=== PATIENT | female | born 1955 | race Caucasian/White ===

== ENCOUNTER → 2017-11-13 | Outpatient (CLI) | payer OTHER ==
--- NOTE | 2017-11-15 07:24 | MM ---
Reason for exam: screening (asymptomatic). Last mammogram was performed 1 year and 1 month ago. History: Patient is postmenopausal. Family history of premenopausal breast cancer in sister and breast cancer in paternal aunt. Physical Findings: A clinical breast exam by your physician is recommended on an annual basis and results should be correlated with mammographic findings. MG 3D Screening Mammo W/Cad Bilateral CC and MLO view(s) were taken. Prior study comparison: October 16, 2016, bilateral MG screening mammo w CAD. October 14, 2015, bilateral MG 3d screening mammo w/cad. The breast tissue is heterogeneously dense. This may lower the sensitivity of mammography. There is no discrete abnormality. No significant changes when compared with prior studies. ASSESSMENT: Negative, BI-RAD 1 RECOMMENDATION: Routine screening mammogram of both breasts in 1 year.
== END | disposition home or self-care (01) ==
LOC: RADMAMWWP 08:08
PROVIDERS: ATTEND Obstetrics & Gynecology
DX: Z12.31 Encounter for screening mammogram for malignant neoplasm of breast (principal)
CPT/HCPCS: 77063; 77067

== ENCOUNTER → 2018-09-04 | Outpatient (CLI) | payer OTHER ==
--- NOTE | 2018-09-04 13:26 | XR ---
EXAMINATION TYPE: XR wrist complete RT DATE OF EXAM: 09/04/2018 CLINICAL HISTORY: Radial pain for 2 weeks. TECHNIQUE: Frontal, lateral, scaphoid, and oblique images of the right wrist are obtained. COMPARISON: None FINDINGS: There is no acute fracture/dislocation evident in the right wrist. There is mild narrowing and spurring at base of first metacarpal otherwise carpal joint spaces are fairly well-maintained. The overlying soft tissue appears unremarkable. IMPRESSION: As above.
== END ==
LOC: RADXRMAIN 12:32
PROVIDERS: ATTEND Family Medicine
DX: M25.531 Pain in right wrist (principal)

== ENCOUNTER → 2019-03-10 | Outpatient (CLI) | payer OTHER ==
--- NOTE | 2019-03-11 11:10 | MM ---
Reason for exam: screening (asymptomatic). Last mammogram was performed 1 year and 4 months ago. History: Patient is postmenopausal. Family history of premenopausal breast cancer in sister and breast cancer in paternal aunt. Physical Findings: A clinical breast exam by your physician is recommended on an annual basis and results should be correlated with mammographic findings. MG 3D Screening Mammo W/Cad Bilateral CC and MLO view(s) were taken. XCCL view(s) were taken of the right breast. Prior study comparison: November 13, 2017, bilateral MG 3d screening mammo w/cad. October 16, 2016, bilateral MG screening mammo w CAD. The breast tissue is heterogeneously dense. This may lower the sensitivity of mammography. No suspicious abnormality on the left. Right upper outer quadrant posterior depth focal asymmetry best seen on 3D MLO . ASSESSMENT: Incomplete: need additional imaging evaluation, BI-RAD 0 RECOMMENDATION: Special view mammogram of the right breast. If lesion persists on supplemental views, image directed ultrasound is recommended. [facility] will attempt to contact patient to return for supplemental views and ultrasound if indicated.
== END ==
LOC: RADMAMWWP 07:15
PROVIDERS: ATTEND Obstetrics & Gynecology
DX: Z12.31 Encounter for screening mammogram for malignant neoplasm of breast (principal)
CPT/HCPCS: 77063; 77067

== ENCOUNTER → 2019-03-17 | Outpatient (CLI) | payer OTHER ==
--- NOTE | 2019-03-17 14:57 | MM ---
Reason for exam: additional evaluation requested from abnormal screening. Last mammogram was performed less than 1 month ago. History: Patient is postmenopausal. Family history of premenopausal breast cancer in sister and breast cancer in paternal aunt. Physical Findings: Nurse did not find any significant physical abnormalities on exam. MG 3D Work Up W/Cad RT Spot compression CC, spot compression MLO, and ML view(s) were taken of the right breast. Prior study comparison: March 10, 2019, bilateral MG 3d screening mammo w/cad. November 13, 2017, bilateral MG 3d screening mammo w/cad. The breast tissue is heterogeneously dense. This may lower the sensitivity of mammography. The previously seen abnormality resolves on additional views and appears as fibroglandular tissue compatible with summation. These results were verbally communicated with the patient and result sheet given to the patient on 03/17/19. ASSESSMENT: Negative, BI-RAD 1 RECOMMENDATION: Return to routine screening mammogram schedule for both breasts.
== END | disposition home or self-care (01) ==
LOC: RADMAMWWP 13:41
PROVIDERS: ATTEND Obstetrics & Gynecology
DX: R92.8 Other abnormal and inconclusive findings on diagnostic imaging of breast (principal)
CPT/HCPCS: 77061; 77065

== ENCOUNTER → 2020-09-14 | Outpatient (CLI) | payer MEDICARE, BC ==
--- NOTE | 2020-09-14 22:52 | CT ---
CT CHEST FOR PULMONARY EMBOLISM. EXAMINATION TYPE: CT angio chest DATE OF EXAM: 09/14/2020 INDICATION: Follow up for pulmonary embolism. CT DLP: 249.4 mGycm, Automated exposure control for dose reduction was used. CONTRAST: Patient injected with 63ml mL of Isovue 370. COMPARISON: No prior CT chest at this location TECHNIQUE: CT of the chest is performed on a spiral scan at 2 mm thick sections. Study is performed with intravenous contrast timed for evaluation for pulmonary embolism. This will limit additional po rtions of the evaluation. 3-D MIP images reconstructed by the technologist are reviewed on the compu ter in the coronal and sagittal planes. FINDINGS: No persistent filling defects are evident to suggest an acute or chronic pulmonary embolism. No mediastinal or hilar adenopathy enlarged by CT criteria is evident. The ascending aorta diameter at the level of the main pulmonary artery is 4.0 cm. The main pulmonary artery diameter at the bifur cation is 3.3 cm. Small hiatal hernia may be present. There are linear opacities within the lower lung moss likely on the basis of atelectasis and/or sca rring. Limited CT section through the upper abdomen are unremarkable. IMPRESSIONS: 1. No suspicious pulmonary artery filling defects for chronic or recurrent pulmonary emboli.
== END | disposition home or self-care (01) ==
LOC: RADCTMAIN 15:19
PROVIDERS: ATTEND Family Medicine
DX: I26.09 Other pulmonary embolism with acute cor pulmonale (principal)
CPT/HCPCS: 82565; 84520; 71275; 36415; Q9967

== ENCOUNTER → 2020-11-11 | Outpatient (CLI) | payer MEDICARE, BC ==
--- NOTE | 2020-11-11 14:34 | MM ---
Reason for exam: screening (asymptomatic). Last mammogram was performed 1 year and 8 months ago. History: Patient is postmenopausal. Family history of premenopausal breast cancer in sister and breast cancer in paternal aunt. Physical Findings: A clinical breast exam by your physician is recommended on an annual basis and results should be correlated with mammographic findings. MG 3D Screening Mammo W/Cad Bilateral CC and MLO view(s) were taken. XCCL view(s) were taken of the right breast. Prior study comparison: March 10, 2019, bilateral MG 3d screening mammo w/cad. November 13, 2017, bilateral MG 3d screening mammo w/cad. The breast tissue is heterogeneously dense. This may lower the sensitivity of mammography. There are benign appearing round calcifications in the right breast. There is no discrete abnormality. ASSESSMENT: Benign, BI-RAD 2 RECOMMENDATION: Routine screening mammogram of both breasts in 1 year.
== END | disposition home or self-care (01) ==
LOC: RADMAMWWP 08:47
PROVIDERS: ATTEND Obstetrics & Gynecology
DX: Z12.31 Encounter for screening mammogram for malignant neoplasm of breast (principal)
CPT/HCPCS: 77063; 77067

== ENCOUNTER → 2021-10-18 | Outpatient (CLI) | payer MEDICARE, BC ==
--- NOTE | 2021-10-18 11:26 | US ---
EXAMINATION TYPE: US abdomen complete DATE OF EXAM: 10/18/2021 COMPARISON: NONE CLINICAL HISTORY: 66-year-old female R10.9 abd and pelvis pain. TECHNIQUE: Multiple sonographic images of the abdomen are obtained. FINDINGS: EXAM MEASUREMENTS: Liver Length: 16.8 cm Gallbladder Wall: 0.2 cm CBD: 0.2 cm Spleen: 9.6 cm Right Kidney: Partially obscured due to overlying bowel gas. Unable to assess the long axis dimensio n. Left Kidney: 10.8 x 4.6 x 5.1 cm Dedicated Owner Operator notes: severe overlying bowel gas, technically difficult limited study. Pancreas: Only portions of the pancreatic head and neck are seen. Remainder is obscured by bowel gas shadowing. Liver: wnl Gallbladder: wnl Evidence for sonographic Lopez's sign: no CBD: wnl Spleen: wnl Right Kidney: Partially obscured by overlying bowel gas, portions visualized wnl . No hydronephrosis . Left Kidney: wnl Upper IVC: wnl Abd Aorta: Mostly obscured by overlying bowel gas IMPRESSION: Limitations due to overlying bowel gas. No gallstones or biliary ductal dilatation. No hydronephrosis .
--- NOTE | 2021-10-18 11:37 | US ---
EXAMINATION TYPE: US transvaginal DATE OF EXAM: 10/18/2021 COMPARISON: NONE CLINICAL HISTORY: 66-year-old female R10.9 abd and pelvic pain. TECHNIQUE: Transvaginal (TV). The patient's bladder is not full Date of LMP: postmenopausal FINDINGS: EXAM MEASUREMENTS: Uterus: 6.3 x 2.7 x 4.3 cm Endometrial Stripe: 0.3 cm Right Ovary: 1.5 x 0.7 x 0.9 cm Left Ovary: Obscured by overlying bowel gas 1. Uterus: Anteverted and otherwise wnl 2. Endometrium: wnl 3. Right Ovary: wnl 4. Left Ovary: Obscured by overlying bowel gas 5. Bilateral Adnexa: wnl 6. Posterior cul-de-sac: wnl IMPRESSION: Unable to visualize the left ovary. Thin endometrial stripe at 3 mm. No pelvic free fluid.
== END | disposition home or self-care (01) ==
LOC: RADUSWWP 09:45
PROVIDERS: ATTEND Family Medicine
DX: R10.9 Unspecified abdominal pain (principal)
CPT/HCPCS: 76700; 76830

== ENCOUNTER → 2022-03-30 | Outpatient (CLI) | payer MEDICARE, BC ==
--- NOTE | 2022-04-02 19:50 | MM ---
Reason for Exam: Screening (asymptomatic). Last mammogram was performed 1 year(s) and 5 month(s) ago. Patient History: Menarche at age 11. First Full-Term at age 21. Postmenopausal. Paternal aunt had breast cancer, age 51. Sister had breast cancer, age 30. Risk Values: Tiff 5 year model risk: 3.2%. NCI Lifetime model risk: 10.8%. Prior Study Comparison: 03/10/2019 Bilateral Screening Mammogram, [facility]. 03/17/2019 Right Diagnostic Mammogram, [facility]. 11/11/2020 Bilateral Screening Mammogram, [facility]. Tissue Density: The breast tissue is heterogeneously dense. This may lower the sensitivity of mammography. Findings: Analyzed By CAD. No significant change from prior exams. Overall Assessment: Negative, BI-RAD 1 Management: Screening Mammogram of both breasts in 1 year. A clinical breast exam by your physician is recommended on an annual basis and results should be correlated with mammographic findings. Also, the patient should continue monthly self breast exams. Electronically signed and approved by: Geremias Restrepo M.D. Radiologist
== END | disposition home or self-care (01) ==
LOC: RADMAMWWP 06:59
PROVIDERS: ATTEND Obstetrics & Gynecology
DX: Z12.31 Encounter for screening mammogram for malignant neoplasm of breast (principal)
CPT/HCPCS: 77063; 77067

== ENCOUNTER → 2022-06-28 | Outpatient (CLI) | payer MEDICARE, BC ==
--- NOTE | 2022-06-28 12:50 | XR ---
EXAMINATION TYPE: XR ankle complete LT DATE OF EXAM: 06/28/2022 CLINICAL HISTORY: Pain and swelling after rolling injury. TECHNIQUE: Frontal, lateral and oblique images of the left ankle are obtained. COMPARISON: None. FINDINGS: There is moderate soft tissue swelling over the lateral malleolus with acute oblique chip t ype fracture through the distal lateral aspect of the lateral malleolus. Small fracture fragment nagi ures roughly 7 x 6 mm. Medial malleolus is intact. Ankle mortise symmetry is preserved. Incidental mo derate size inferior calcaneal spur. IMPRESSION: As above.
== END | disposition home or self-care (01) ==
LOC: RADXRMAIN 12:18
PROVIDERS: ATTEND Family Medicine
DX: M25.572 Pain in left ankle and joints of left foot (principal)

== ENCOUNTER → 2023-05-09 | Outpatient (CLI) | payer MEDICARE, BC ==
--- NOTE | 2023-05-10 15:40 | MM ---
Reason for Exam: Screening (asymptomatic). Last mammogram was performed 1 year(s) and 1 month(s) ago. Patient History: Menarche at age 11. First Full-Term at age 21. Postmenopausal. Paternal aunt had breast cancer, age 51. Sister had breast cancer, age 30. Risk Values: Tiff 5 year model risk: 3.3%. NCI Lifetime model risk: 10.4%. Prior Study Comparison: 03/17/2019 Right Diagnostic Mammogram, [facility]. 11/11/2020 Bilateral Screening Mammogram, [facility]. 03/30/2022 Bilateral MG 3D screening mammo w/cad, [facility]. Tissue Density: The breast tissue is heterogeneously dense. This may lower the sensitivity of mammography. Findings: Analyzed By CAD. Pattern appears symmetrical and stable. No significant interval change is evident. Benign spherical calcifications are within the right breast. No suspicious groups of microcalcifications, spiculated or lobular masses, architectural distortion or other secondary signs of malignancy are mammographically apparent. Overall Assessment: Benign, BI-RAD 2 Management: Screening Mammogram of both breasts in 1 year. A negative mammogram report should not preclude additional follow up of suspicious palpable abnormalities. Patient should continue monthly self breast exam. A clinical breast exam by your physician is recommended on an annual basis and results should be correlated with mammographic findings. Electronically signed and approved by: Odell Gibson D.O. Radiologis
== END | disposition home or self-care (01) ==
LOC: RADMAMWWP 08:09
PROVIDERS: ATTEND Obstetrics & Gynecology
DX: Z12.31 Encounter for screening mammogram for malignant neoplasm of breast (principal); Z78.0 Asymptomatic menopausal state; Z80.3 Family history of malignant neoplasm of breast
CPT/HCPCS: 77063; 77067

== ENCOUNTER → 2024-07-08 | Outpatient (CLI) | payer MEDICARE, BC ==
--- NOTE | 2024-07-09 10:19 | MM ---
Reason for Exam: Screening (asymptomatic). Last mammogram was performed 1 year(s) and 2 month(s) ago. Patient History: Menarche at age 11. First Full-Term at age 21. Postmenopausal. Patient has history of breast feeding. Paternal aunt had breast cancer, age 51. Sister had breast cancer, age 30. Risk Values: Tiff 5 year model risk: 3.3%. NCI Lifetime model risk: 9.5%. Prior Study Comparison: 11/11/2020 Bilateral Screening Mammogram, [facility]. 03/30/2022 Bilateral MG 3D screening mammo w/cad, [facility]. 05/09/2023 Bilateral MG 3D screening mammo w/cad, [facility]. Tissue Density: The breasts are heterogeneously dense, which may obscure small masses. Findings: Analyzed By CAD. There is no suspicious group of microcalcifications or new suspicious mass in either breast. Overall Assessment: Benign, BI-RAD 2 Management: Screening Mammogram of both breasts in 1 year. . Patient should continue monthly self-breast exams. A clinical breast exam by your physician is recommended on an annual basis. This exam should not preclude additional follow-up of suspicious palpable abnormalities. Note on Tiff scores and lifetime risk: 1. A Tiff score greater than 3% is considered moderate risk. If this is the case, consider specialist referral to assess eligibility for a risk reducing agent. 2. If overall lifetime risk for the development of breast cancer is 20% or higher, the patient may qualify for future screening with alternating mammogram and breast MRI. Electronically signed and approved by: Venkatesh Dillard M.D. Radiologis
== END | disposition home or self-care (01) ==
LOC: RADMAMWWP 08:56
PROVIDERS: ATTEND Obstetrics & Gynecology
DX: Z12.31 Encounter for screening mammogram for malignant neoplasm of breast
CPT/HCPCS: 77063; 77067

== ENCOUNTER → 2024-08-10 | Day surgery (SDC) | payer MEDICARE, BC ==
[~2024-08-10] MED LIST: LIDOCAINE 1% (10MG/ML) FOR IV START INTRADERMA PRN; PROPOFOL 10 MG/ML 20 ML VIAL IV ONE
[2024-08-10 08:16] VITALS: TEMP 97.5
[2024-08-10] MEDS: IV FLUID CONTINUATION 1,000 ML IV ONE (08:16)
[2024-08-10] MEDS: LACTATED RINGERS 1,000 ML IV SCH (08:27)
[2024-08-10] MEDS: ONDANSETRON 4 MG/2 ML VIAL IVP STA (08:28)
--- NOTE | 2024-08-10 10:03 | P.PCN ---
Date of Procedure: 08/10/24 Preoperative Diagnosis: Screening Postoperative Diagnosis: Rectal polyp Procedure(s) Performed: Colonoscopy with hot snare polypectomy Anesthesia: MAC Surgeon: Misael Ross Pathology: other (Rectal polyp) Condition: stable Disposition: same day Indications for Procedure: 69-year-old female presents for screening colonoscopy. She has had 1 previously many years ago. Denies any blood in her stool. Denies any family history of colon cancer. Operative Findings: Rectal polyp Description of Procedure: The patient was brought to the endoscopy suite and placed in left lateral decubitus position and adequate sedation was achieved using conscious sedation. A digital rectal exam was performed and mild internal hemorrhoids were palpated. An endoscope was then placed in the rectum and advanced to the cecum as identified by landmarks including the appendiceal orifice and the ileocecal valve. The prep was good. The colonoscope was then slowly withdrawn, examining for any mucosal abnormalities. The cecum, ascending, transverse, descending and sigmoid colon were visualized adequately. No obvious inflammatory lesions were found. No obvious diverticulosis. 1 rectal polyp was noted and this was removed with hot snare polypectomy. Hemostasis maintained. Retroflexion was performed the rectum and mild internal hemorrhoids were visible. Excess air was removed. The colonoscope withdrawn and procedure terminated. The patient was then transferred to recovery unit in stable condition. Repeat colonoscopy should be performed in 5 years.
[2024-08-10 10:07] VITALS: RESP 14
[2024-08-10 10:41] VITALS: BP 123/82; PULSE 62
== END | disposition home or self-care (01) ==
LOC: ORWHC2ENDO 07:47
PROVIDERS: ATTEND Surgery
CPT/HCPCS: 45385; 88305